=== PATIENT | female | born 1940 | race Caucasian/White ===

== ENCOUNTER 2017-05-24 16:32 | Inpatient (IN) | payer OTHER ==
[~2017-05-24] VITALS: Ht 157.5 cm; Wt 66.7 kg
--- NOTE | ~2017-05-24 | PROC ---
[address] [address] PROCEDURE REPORT Name: FABIOLA HARRIS Room: [address] IN M.R.#: [id number] Admission: 05/24/17 Attend Phys: Shaista Isaac MD Discharge: 05/26/17 Date of : 44 Report #: [id number] THIS REPORT FOR: //name// For GI report, Please see the Provation report in Per[employer] 7 content. By: 06Medical Records Staff PERLITA /HALI
[~2017-05-24 16:32] MED LIST: ACETAMINOPHEN-1 EAC1 PO; AMLODIPINE-BEN1 EAC3 PO; ARIXTRA; CALCIUM 600 +1 EAC1 PO; CALCIUM CARBON600 MG PO; CLARITIN10 MG PO; DOCUSATE SODIU100 MG PO; FISH OIL 1,0001 EAC5 PO; FISH OIL 1,001000 M2 PO; HAIR, SKIN & N1 EAC1 PO; IRON325 PO; LOVASTAT10 PO; METAMUCIL PO; MULTIPLE VIT; NORCO 5-325 TA1 EACH PO; OMEPRAZOLE20 MG PO; OXYIR5 MG; PERCOCET 5-3251 EACH; PREMARIN; VITAMIN D1000 UNI1 PO; ZESTORETIC 20-1 EACH PO; [UNRECOGNIZED DRUG - OTHER]
[2017-05-24 16:47] VITALS: BP 194/102
[2017-05-24 18:43] LABS: ABSOLUTE BASOPHILS 0.1 thou/uL (0.0-0.2); ABSOLUTE EOSINOPHILS 0.1 thou/uL (0.0-0.7); ABSOLUTE MONOCYTES 0.6 thou/uL (0.0-1.2); ABSOLUTE NEUTROPHILS 10.2 thou/uL (1.6-8.1); BASOPHILS 0.7 %; EOSINOPHILS 0.6 %; HEMATOCRIT 38.1 % (37.0-47.0); HEMOGLOBIN 12.8 gm/dL (12.0-15.0); LYMPHOCYTES 15.7 %; MCH 32.8 pg (26.0-34.0); MCHC 33.7 g/dL (28.0-37.0); MCV 97.5 fL (80.0-100.0); MPV 7.9 fl. (7.2-11.1); NUCLEATED RBCS 0 /100WBC; PLATELET COUNT* 260 thou/uL (150-400); RBC 3.91 mil/uL (4.20-5.00); WBC 13.1 thou/uL (4.0-11.0)
[2017-05-24 18:52] LABS: CALCIUM 9.3 mg/dL (8.5-10.1); CREATININE 1.8 mg/dL (0.6-1.3); POTASSIUM 3.9 mmol/L (3.5-5.1)
[2017-05-24 18:56] LABS: ALBUMIN 3.9 g/dL (3.4-5.0); TOTAL BILIRUBIN 0.3 mg/dL (<0.1-1.0); TOTAL PROTEIN 7.8 g/dL (6.4-8.2)
[2017-05-24 22:16] VITALS: BP 154/61
[2017-05-24] MEDS ORDERED: ZYRTEC10 M5 PO (22:35)
[2017-05-24] MEDS ORDERED: FLONASE 0.05%50 MCG NASAL (22:37)
[2017-05-24 23:00] VITALS: BP 133/61
[2017-05-25 04:14] VITALS: BP 151/53
--- NOTE | 2017-05-25 05:00 | NUR ---
END SHIFT: PT RESTED WELL. NO COMPLAINTS. NO PAIN. NURSING BEDSIDE SWALLOW EVAL COMPLETED WITHOUT DIFFICUTLY. HAS REMAINED NPO SINCE MN AWAITING CONSULTS. NSR ON MONITOR. ASSESSMENT UNCHANGED. VSS. SAFETY PRECAUTIONS IN PLACE. CALL LIGHT IN REACH. PERFORMED HOURLY ROUNDING. WILL CONT TO MONITOR.
[2017-05-25 07:02] LABS: URINE BILIRUBIN NEGATIVE (Negative); URINE BLOOD NEGATIVE (Negative); URINE CLARITY CLEAR; URINE COLOR YELLOW; URINE GLUCOSE-RANDOM NEGATIVE (Negative); URINE KETONES NEGATIVE (Negative); URINE LEUKOCYTES-REFLEX NEGATIVE (Negative); URINE NITRITE-REFLEX NEGATIVE (Negative); URINE PROTEIN NEGATIVE (Negative); URINE SPECIFIC GRAVITY <= 1.005 (1.005-1.030); URINE UROBILINOGEN 0.2 E.U./dl (0.2-1.0)
[2017-05-25 08:00] VITALS: BP 143/66
[2017-05-25 11:35] VITALS: BP 143/66
[2017-05-25 11:53] LABS: CALCIUM 8.8 mg/dL (8.5-10.1); CREATININE 1.6 mg/dL (0.6-1.3); POTASSIUM 4.1 mmol/L (3.5-5.1)
[2017-05-25 12:07] VITALS: BP 147/68
--- NOTE | 2017-05-25 14:46 | NUR ---
RECEIVED REPORT. ASSUMED CARE OF PT AROUND 0730. PT A&O X4. VSS. O2 SAT 92% ON RA. WIRE ROLLER IN PLACE TRACING SR. AM ASSESSMENT AND VITALS COMPLETED CHARTED. IV TO RIGHT AC PATENT AND INFUSING IVF. PT DENIES PAIN OR DISCOMFORT SO FAR THIS SHIFT. NO CHEST PAIN. PT INFORMED OF PLAN OF CARE, PT COMMUNICATES UNDERSTANDING. PT WENT DOWN FOR EGD THIS AM AND RETURNED TO THE FLOOR AROUND 1345. VSS. GI SIGNS OFF. PT CURRENTLY DOWNSTAIRS FOR RENAL U/S. PT ABLE TO BE UP AD LOU IN ROOM. VOIDING IN BATHROOM WITHOUT ISSUE. PT PROGRESSED TO REGULAR DIET. FAMILY AT BEDSIDE. HOURLY ROUNDING PERFORMED. WCTM FOR DURATION OF SHIFT.
--- NOTE | 2017-05-25 14:54 | NUR ---
CM ASSESSMENT: Pt is A&O. Resides at home with her . Independent with ADLs. No DME. No hx of HH or SNF. Pt had EGD today, GI following. Renal following. Supportive family that is involved in POC. Goal is to return home once medically stable for dc. Following.
--- NOTE | 2017-05-25 17:51 | EKG ---
[place] [address] ELECTROCARDIOGRAM REPORT Name: STEVENFABIOLARACAHEL LIMA Room: [address] ADM IN ..#: [id number] Admission: 05/24/17 Attend Phys: Shaista Isaac MD Discharge: Date of : 44 Report #: [id number] THIS REPORT FOR: //name// [facility] ED Test Date: 2017-05-24 Test Time: 20:31:29 Pat Name: FABIOLA HARRIS Department: Room: [facility] Gender: F Awning Erector: BD : 1940 Requested By: Jenae Winters Order Number: [id number] MD: Esteban Angeles Measurements Intervals [place] Rate: 101 P: 28 MA: 135 QRS: -18 QRSD: 75 T: 1 QT: 353 QTc: 458 Interpretive Statements Sinus tachycardia Left ventricular hypertrophy, bivoltage Compared to ECG 08/05/2014 07:50:00 Left ventricular hypertrophy now present Sinus bradycardia no longer present Electronically Signed On 05-25-2017 17:51:27 CDT by Esteban Angeles [email or web address] <ELECTRONICALLY SIGNED> By: Esteban Angeles MD, FACC 05/25/17 175 30 30 Esteban Angeles MD, FAC /EPI
--- NOTE | 2017-05-25 17:59 | NUR ---
PT IS 94%, HR 81 ON ROOM AIR
--- NOTE | 2017-05-25 18:52 | NUR ---
PT RETURNED FOR RENAL U/S. SEE RESULTS. PT ABLE TO EAT DINNER WITHOUT ISSUE. FAMILY REMAINS AT BEDSIDE. IV INTACT AND INFUSING IVF. PT DENIES PAIN OR DISCOMFORT. CARDAIC MONITOR REMAINS IN PLACE WITH NO CHANGES THIS SHIFT. ALL NEEDS MET AT THIS TIME. PT ANTICIIPATING DC TOMORROW. PT WATCHING TV IN BED NOW. CALL LIGHT REAMINS IN PLACE. LOW RISK FALL PRECAUTIONS ARE IN PLACE. HOURLY ROUNDING PERFORMED. WCTM FOR DURATION OF SHIFT.
[2017-05-25 20:17] VITALS: BP 153/55
[2017-05-26 00:02] VITALS: BP 151/69
[2017-05-26 03:44] VITALS: BP 130/54
--- NOTE | 2017-05-26 05:04 | NUR ---
Pt reports that she has allergies and is currently stuffy and a little congested. VSS. Reports she has slight sore throat from EGD, but no complaints otherwise. States she anticipates being discharged today. Will continue to monitor.
[2017-05-26 05:24] LABS: ABSOLUTE EOSINOPHILS 0.2 thou/uL (0.0-0.7); ABSOLUTE LYMPHOCYTES 1.4 thou/uL (0.8-5.3); ABSOLUTE MONOCYTES 0.8 thou/uL (0.0-1.2); ABSOLUTE NEUTROPHILS 7.8 thou/uL (1.6-8.1); BASOPHILS 0.4 %; EOSINOPHILS 2.2 %; LYMPHOCYTES 13.4 %; MCH 33.6 pg (26.0-34.0); MCHC 34.5 g/dL (28.0-37.0); MCV 97.4 fL (80.0-100.0); MONOCYTES 7.5 %; NUCLEATED RBCS 0 /100WBC; POLYS 76.5 %; RBC 2.77 mil/uL (4.20-5.00); RDW-CV 13.2 % (10.5-14.5); WBC 10.3 thou/uL (4.0-11.0)
[2017-05-26 05:39] LABS: ALBUMIN 2.7 g/dL (3.4-5.0); CALCIUM 8.2 mg/dL (8.5-10.1); CREATININE 1.5 mg/dL (0.6-1.3); HEMOGLOBIN 9.3 gm/dL (12.0-15.0); MAGNESIUM 1.3 mg/dL (1.8-2.4); PHOSPHORUS* 3.3 mg/dL (2.5-4.9); PLATELET COUNT* 163 thou/uL (150-400); POTASSIUM 4.1 mmol/L (3.5-5.1)
[2017-05-26 07:30] VITALS: BP 153/67
[2017-05-26] MEDS ORDERED: MAGOX 400400 MG PO (11:04)
[2017-05-26 11:07] VITALS: BP 153/67
--- NOTE | 2017-05-26 11:53 | NUR ---
RECEIVED REPORT AND ASSUMED CARE AT 0730. VSS. CARDIAC MONITORING IN PLACE. PT DENIES ANY COMPLAINTS OF PAIN. ASSESSMENT COMPLETED CHARTED. PT UP AD LOU I ROOM. PT ON RA. DISCUSSED PLAN OF CARE WITH PT, VERBALIZED UNDERSTANDING. PLAN TO DISCHARGE TODAY, BED IN LOWEST POSITION, CALL LIGHT WITHIN REACH, WILL CONTINUE TO MONITOR FOR REMAINDER OF SHIFT
--- NOTE | 2017-05-26 12:59 | NUR ---
DISCHARGE ORDERS MADE, PAPERWORK COMPLETED BY NURSING. PT DENIES ANY COMPLAINTS OF PAIN. IV AND CARDIAC MONITORING DISCONTINUED. PT DISCHARGING TO HOME, PAPERWORK DISCUSSED WITH PT AND SPOUSE. ALL QUESTIONS AND CONCERNS ANSWERED AT THIS TIME. PT ESCORTED BY NURSING STAFF TO HOSPITAL ENTRANCE, BEING TAKEN HOME IN PERSONAL CAR BY HER .
--- NOTE | 2017-05-26 15:09 | S ---
[place] [address] SURGICAL PATH RPT PROCEDURE Name: RADHA FELIPE Room: [address] IN ..#: [id number] Admission: 05/24/17 Date of : 44 Discharge: 05/26/17 Report #: [id number] Path Case #: [id number] PATHOLOGY REPORT COLLECTION DATE: 05/25/2017 RECEIVED DATE: 05/25/2017 SUBMITTING PHYS: Dr. John Curtis OTHER PHYS: Dr. Shaista Hayden SPECIMEN(S) RECEIVED: A.Distal esophagus * * * * * * * * * * * * FINAL DIAGNOSIS: Biopsy distal esophagus: - Benign esophageal and gastric/columnar types mucosa with moderate chronic inflammation compatible with reflux, negative for goblet cells/diagnostic Weiss's metaplasia and dysplasia. (PITA:pit; 05/26/2017) PATHOLOGIST: Jag Paige M.D. REPORT ELECTRONICALLY SIGNED BY: Jag Paige M.D. DATE/TIME: 05/26/2017 15:09 * * * * * * * * * * * * GROSS PATHOLOGY: The specimen is received in formalin, labeled "Radha Felipe, biopsy distal esophagus: 1308", is an irregular fragment of de león soft tissue 0.5 x 0.1 cm in greatest dimension, entirely submitted in A1. (SWS; 05/25/2017) CLINICAL HISTORY: None provided INITIAL CPT CODE(S): A; 27884 Professional services performed by [facility] at [facility] [address] [place] [address] Technical services performed by [facility] at [address] [place] [address], [facility] [address], [place] [address]. [address] [place] [address] SURGICAL PATH RPT PROCEDURE Name: RADHA FELIPE Room: [address] IN .R.#: [id number] Admission: 05/24/17 Date of : 44 Discharge: 05/26/17 Report #: [id number] Path Case #[facility] [id number] [facility] [address] [address] PHONE: [phone] DIRECTOR: Maicol Hernandez M.D. * * * END OF REPORT * * *
--- NOTE | 2017-05-27 09:52 | CON ---
[address] [address] CONSULTATION Name: FABIOLA HARRIS Room: [address] IN .R.#: [id number] Admission: 05/24/17 Attend Phys: Shaista Isaac MD Discharge: 05/26/17 Date of : 44 Report #: [id number] THIS REPORT FOR: //name// [facility]: Dr. Isaac. REASON FOR CONSULTATION: Acute kidney injury. HISTORY OF PRESENT ILLNESS: This is a 76-year-old female with no known history of kidney disease who was admitted with suspected pill esophagitis. She has a history of Weiss esophagus. She had very high blood pressures when she came in. She appears to be comfortable now. Denies any nausea, vomiting, or diarrhea. Denies any new medications or antibiotics. Denies any NSAID use, currently feels well. REVIEW OF SYSTEMS: Constitutional, psych, heme, eyes, ENT, respiratory, cardiac, GI, , endocrine, all negative except as documented above. PAST MEDICAL HISTORY: Weiss's esophagus, hypertension for at least 10 years, history of colon cancer and resection, history of right total knee replacement, GERD. SOCIAL HISTORY: No tobacco. FAMILY HISTORY: Not pertinent in this 76-year-old female. CURRENT MEDICATIONS: Reviewed. PHYSICAL EXAMINATION: VITAL SIGNS: Blood pressure 143/66, pulse 71, respirations 16, temperature 37.4. GENERAL: No acute distress. EYES: Extraocular movements intact. EARS: Externally normal. CARDIOVASCULAR: Regular rate. LUNGS: No crackles. ABDOMEN: Soft, nontender. LYMPHATICS: No peripheral pitting edema. PSYCHIATRIC: Awake, alert. LABORATORY DATA: White cell count 13.1, hemoglobin 12.8, platelets . Sodium 142, potassium 3.9, chloride 105, bicarbonate 26, BUN 20, creatinine 1.8, glucose 125, calcium 9.3, albumin 3.9. ASSESSMENT: [place] [address] CONSULTATION Name: STEVENFABIOLA Room: [address] IN [facility].#: [id number] Admission: 05/24/17 Attend Phys: Shaista Isaac MD Discharge: 05/26/17 Date of : 44 Report #: [id number] 1. Acute kidney injury with an admission creatinine of 1.8 on 05/24/2017. UA okay. This is in the setting of lisinopril and hydrochlorothiazide and suspected pill esophagitis. Baseline creatinine is unknown. She also did receive 85 mL of contrast as part of a CT scan on 05/24/2014, creatinine was 1.3. 2. Hypertension for over 10 years. 3. Weiss's esophagus. PLAN: 1. Check lab now. 2. Continue hydration with normal saline at 100 mL an hour. 3. Check renal ultrasound. 4. Check labs again in the a.m. Thank you for requesting my opinion in the care and management of this patient. <ELECTRONICALLY SIGNED> By: Mian Tilley MD 05/27/17 0952 [id number] 1306Abiumer Tilley MD /nt
--- NOTE | 2017-06-01 15:01 | CON ---
[address] [address] CONSULTATION Name: FABIOLA HARRIS JANIE Room: [address] IN M.R.#: [id number] Admission: 05/24/17 Attend Phys: Shaista Isaac MD Discharge: 05/26/17 Date of : 44 Report #: [id number] THIS REPORT FOR: //name// CC: Shaista Hayden DO DICTATED BY: Jessica Bundy [facility] DATE OF SERVICE: 05/25/2017 PRIMARY CARE PHYSICIAN: Dr. Steffanie Hayden. Please note at the time of this dictation, the patient was seen and physically examined by myself. REASON FOR CONSULTATION: Odynophagia. HISTORY OF PRESENT ILLNESS: This is a 76-year-old female who presented to the Emergency Room after swallowing a calcium carbonate pill, which she has had several and which went down wrong and got stuck in her chest causing her a great deal of sternal discomfort. She presented to the Emergency Room when it was getting worse and going through into her back. Since being here, she states she has had a couple sips of water and things are feeling better, but she still feels that things are scratchy and are irritated on the inside. The patient states she does have a history of Weiss's esophagus. She did undergo an EGD with us back in 2014 that showed chronic inflammation, negative for Weiss's and she also had some gastritis. Last colonoscopy was in 07/2016 and she had some internal hemorrhoids and she is due again in 07/2017 given her history of colon cancer. ALLERGIES: No known drug allergies. MEDICATIONS: From home include Zestoretic, calcium carbonate, multivitamin, vitamin D, lovastatin, iron, fish oil, omeprazole, Zyrtec and Flonase. PAST MEDICAL HISTORY: Weiss's esophagus, hypertension, colon cancer in 2015. PAST SURGICAL HISTORY: Wrist surgery, bilateral cataracts, right total knee replacement and a right hemicolectomy in 2015. FAMILY HISTORY: Noncontributory. SOCIAL HISTORY: Denies any alcohol, tobacco or illegal [place] [address] CONSULTATION Name: FABIOLA HARRIS Room: [address]#: [id number] Admission: 05/24/17 Attend Phys: Shaista Isaac MD Discharge: 05/26/17 Date of : 44 Report #: [id number] REVIEW OF SYSTEMS: Twelve-point review of systems is essentially negative except what is mentioned in the HPI. PHYSICAL EXAMINATION: VITAL SIGNS: Temperature 37.4, pulse 71, respirations 16, blood pressure 143/66. HEART: Regular rate and rhythm. LUNGS: Clear. ABDOMEN: Soft, positive bowel sounds in all 4 quadrants with no masses or tenderness noted. LABORATORY DATA: Hemoglobin 12.8, hematocrit 38.1, white count is 13.1, platelets 260. Sodium 142, potassium 3.9, chloride 105, CO2 26, BUN is 20, creatinine 1.8. GFR is 28 and glucose is 125. IMPRESSION: 1. Odynophagia, resolved. 2. History of Weiss's esophagus. 3. History of colon cancer in 2014. 4. Leukocytosis. 5. Chronic kidney disease stage 3. PLAN: 1. EGD today with Dr. Curtis. 2. Further recommendations to be made after the procedure. 3. The patient in recall for colonoscopy of July of this year for surveillance of her colon cancer. Thank you for allowing us to participate in this patient's care. Please do not hesitate to call with any questions in regard to this consult. ADDENDUM This is a 76-year-old female with history of upper endoscopy 3 years ago, which was significant for gastritis. The patient also has history of colon cancer, status post right hemicolectomy who is scheduled for repeat colonoscopy in 07/2017. She reports that when she was taking a calcium pill, she felt that it got stuck in her throat. She had noncardiac chest pain and pressure in her chest, which prompted her to come to hospital. We will go ahead and perform an upper endoscopy and possibly dilate her esophagus. We will make further recommendation when the upper endoscopy is complete. <ELECTRONICALLY SIGNED> By: John Curtis MD 06/01/17 1501 1155 [id number] Curtis MD /nt
== END 2017-05-26 13:00 | disposition home or self-care (01) | DRG 683 ==
LOC: M.ERS 16:32 → M.2W 21:38 → M.TBA-ER 21:38 → M.2W 22:45
PROVIDERS: Internal Medicine; Internal Medicine Nephrology; Physician Assistant; ADMIT Internal Medicine
PROC: 0DJ08ZZ Inspection of Upper Intestinal Tract, Via Natural or Artificial Opening Endoscopic (ICD-10-PCS; principal; 2017-05-25)
DX: N17.9 Acute kidney failure, unspecified (principal); E44.1 Mild protein-calorie malnutrition; K21.0 Gastro-esophageal reflux disease with esophagitis; I10 Essential (primary) hypertension; Z96.651 Presence of right artificial knee joint; Z96.1 Presence of intraocular lens; K22.70 Barrett's esophagus without dysplasia; N18.3 Chronic kidney disease, stage 3 (moderate); M19.90 Unspecified osteoarthritis, unspecified site; K44.9 Diaphragmatic hernia without obstruction or gangrene; Z98.42 Cataract extraction status, left eye; Z98.41 Cataract extraction status, right eye; Z85.038 Personal history of other malignant neoplasm of large intestine

== ENCOUNTER → 2017-08-21 | Outpatient (CLI) | payer OTHER ==
[~2017-08-21] MED LIST changes: +FLONASE 0.05%50 MCG NASAL; +MAGOX 400400 MG PO; +ZYRTEC10 M5 PO
== END ==
LOC: M.LAB 04:35
DX: Z01.812 Encounter for preprocedural laboratory examination (principal)

== ENCOUNTER → 2018-12-14 | Outpatient (CLI) | payer OTHER | LOC: M.RAD 12-09 15:30 | DX: Z12.31 Encounter for screening mammogram for malignant neoplasm of breast (principal); M85.89 Other specified disorders of bone density and structure, multiple sites; Z78.0 Asymptomatic menopausal state ==

== ENCOUNTER → 2019-08-25 | Outpatient (CLI) | payer MEDICARE | LOC: M.LAB 15:00 | DX: Z01.812 Encounter for preprocedural laboratory examination (principal); K22.70 Barrett's esophagus without dysplasia; Z11.59 Encounter for screening for other viral diseases; Z85.038 Personal history of other malignant neoplasm of large intestine ==

== ENCOUNTER → 2019-12-07 | Outpatient (CLI) | payer MEDICARE | LOC: M.RAD 13:37 | PROVIDERS: ATTEND Family Medicine | DX: Z12.31 Encounter for screening mammogram for malignant neoplasm of breast (principal) ==

== ENCOUNTER → 2020-12-04 | Outpatient (CLI) | payer OTHER | LOC: M.RAD 12:48 | PROVIDERS: ATTEND Family Medicine | DX: Z12.31 Encounter for screening mammogram for malignant neoplasm of breast (principal); M85.80 Other specified disorders of bone density and structure, unspecified site; M85.88 Other specified disorders of bone density and structure, other site ==